=== PATIENT | female | born 1990 | race Caucasian/White ===

== ENCOUNTER 2021-03-23 07:31 | Inpatient (IN) | payer OTHER ==
[~2021-03-23 07:31] MED LIST: Bupivacaine 0.25% 10 ML SDV ONE; Calcium Carbonate 500 MG Tab.Chew PO PRN; Lidocaine 1% 50 ML MDV INJECT ONE; Nalbuphine 10 MG/1 ML Vial IVPUSH PRN; Ondansetron 4 MG/2 ML SDV IVPUSH PRN
[2021-03-23] MEDS ORDERED: Oxytocin/Lactated Ringers 10 UNIT/1,000 ML BAG IV SCH ×2 (07:45→09:45)
[2021-03-23] MEDS ORDERED: Sodium Chloride 0.9% 10 ML Syringe FLUSH SCH (09:00)
[2021-03-23] MEDS: Lactated Ringers 1,000 ML IV SCH ×3 (10:08→14:16)
[2021-03-23] MEDS ORDERED: Ondansetron 4 MG/2 ML SDV IVPUSH PRN (10:21)
[2021-03-23] MEDS ORDERED: fentaNYL 100 MCG/2 ML SDV EPIDUR PRN (10:21)
[2021-03-23] MEDS ORDERED: ePHEDrine 50 MG/ML SDV IVPUSH PRN (10:21)
[2021-03-23] MEDS ORDERED: Bupivacaine/fentaNYL/NS 100 ML Bag EPIDUR SCH (10:30)
[2021-03-23] MEDS ORDERED: Benzocaine/Menthol 20%-0.5% Spray 78 GM Cannister TOP PRN (16:26)
[2021-03-23] MEDS ORDERED: Ibuprofen 600 MG Tab PO PRN (16:26)
[2021-03-23] MEDS ORDERED: Acetaminophen 325 MG Tab PO PRN (16:26)
[2021-03-23] MEDS: Witch Hazel Medicated Pads 40/Jar TOP PRN (17:38)
[2021-03-24] MEDS: Witch Hazel Medicated Pads 40/Jar TOP PRN (17:05)
== END 2021-03-24 17:45 | disposition home or self-care (01) | DRG 805 ==
LOC: UNDOADMOB 07:31 → JD.OB 07:31 → OBSVTOIN 16:05 → INTOOBSV 16:05 → JD.OB 22:43 → UNDODISIN 03-24 17:45
PROVIDERS: ADMIT Obstetrics & Gynecology; ATTEND Obstetrics & Gynecology
PROC: 10E0XZZ Delivery of Products of Conception, External Approach (ICD-10-PCS; principal; 2021-03-23)
PROC: 10907ZC Drainage of Amniotic Fluid, Therapeutic from Products of Conception, Via Natural or Artificial Opening (ICD-10-PCS; 2021-03-23)
PROC: 3E033VJ Introduction of Other Hormone into Peripheral Vein, Percutaneous Approach (ICD-10-PCS; 2021-03-23)
PROC: 0HQ9XZZ Repair Perineum Skin, External Approach (ICD-10-PCS; 2021-03-23)
PROC: 3E0R3BZ Introduction of Anesthetic Agent into Spinal Canal, Percutaneous Approach (ICD-10-PCS; 2021-03-23)
PROC: 00HU33Z Insertion of Infusion Device into Spinal Canal, Percutaneous Approach (ICD-10-PCS; 2021-03-23)
DX: O98.52 Other viral diseases complicating childbirth (principal); U07.1 COVID-19; Z37.0 Single live birth; O70.0 First degree perineal laceration during delivery; Z3A.39 39 weeks gestation of pregnancy
CPT/HCPCS: 01967; 36415; 51702; 59025; 59409; 85025; 86592; A9270-GY; J2590; J3010; J3490; J7120; U0002